=== PATIENT | female | born 1975 | race Native Hawaiian/Other Pacific Islander ===

== ENCOUNTER 2018-12-12 12:58 | Outpatient (CLI) | payer OTHER | END 2018-12-12 22:41 | disposition home or self-care (01) | LOC: MAMMO 12:58 | DX: Z12.31 Encounter for screening mammogram for malignant neoplasm of breast (principal) ==

== ENCOUNTER 2020-03-28 09:16 | Emergency (ER) | payer OTHER ==
[~2020-03-28] VITALS: Ht 167.6 cm; Wt 99.8 kg
[2020-03-28 09:26] VITALS: TEMP 97.8
[2020-03-28 11:00] VITALS: BP 118/69
== END 2020-03-28 11:00 | disposition home or self-care (01) ==
LOC: ED 09:16
DX: S32.028A Other fracture of second lumbar vertebra, initial encounter for closed fracture (principal); W11.XXXA Fall on and from ladder, initial encounter; Y92.098 Other place in other non-institutional residence as the place of occurrence of the external cause
CPT/HCPCS: 96372; 99283; J1885

== ENCOUNTER 2020-04-05 13:36 | Outpatient (CLI) | payer OTHER | END 2020-04-05 20:37 | disposition home or self-care (01) | LOC: MRI 13:36 | DX: M48.56XA Collapsed vertebra, not elsewhere classified, lumbar region, initial encounter for fracture (principal) ==

== ENCOUNTER 2020-06-01 14:17 | Outpatient (CLI) | payer OTHER | END 2020-06-01 22:03 | disposition home or self-care (01) | LOC: MRI 14:17 | DX: M48.56XA Collapsed vertebra, not elsewhere classified, lumbar region, initial encounter for fracture (principal) ==

== ENCOUNTER 2022-02-02 13:09 | Outpatient (CLI) | payer OTHER | END 2022-02-02 18:57 | disposition home or self-care (01) | LOC: MAMMO 13:09 | PROVIDERS: ATTEND Internal Medicine | DX: Z12.31 Encounter for screening mammogram for malignant neoplasm of breast (principal) ==